=== PATIENT | male | born 1970 | race Caucasian/White ===

== ENCOUNTER 2019-09-03 08:16 | Observation (INO) | payer OTHER ==
--- NOTE | 2019-09-03 08:34 | EDM.PDOC ---
ED HPI GENERAL MEDICAL PROBLEM - General Chief Complaint: Chest Pain Stated Complaint: EMS Time Seen by Provider: 09/03/19 08:28 Source of Information: Reports: Patient, EMS - History of Present Illness INITIAL COMMENTS - FREE TEXT/NARRATIVE: pt. is a 49 y/o male w/ PMH of multiple VT s/p cardiac bypass in 2017, PE x 2 , depression/anxiety and gerd presenting via EMS w08/06 centralized chest pain. Mentions having sweats w/ mild SOB intially (during his drive w/ EMS) but has gone down when EMS provided nitro + ASA 325. At bedside pt. is c/o pain now w ; describes it as a pressure-like sensation w/ mild upper-abdominal pain. Mentions taking his "morning medications" prior to leaving to work this AM; including his depression medications (cymbalta/buspirone), omperazole and his plavix (is not sure about his other medications). Mentions smoking history 2-3 PPD x 20 years , quit briefly but restarted smoking; mentions not smoking as much as before. Denies ETOH or ilicit substance use. Onset: Today left chest, mid sternal Pain Score (Numeric/FACES): 3 - Related Data Allergies Allergy/AdvReac Type Severity Reaction Status Date / Time codeine Allergy Hives Verified 09/03/19 08:31 Iodinated Contrast Media Allergy Hives Verified 09/03/19 10:19 morphine Allergy Other Verified 09/03/19 08:31 Home Meds: Home Meds Cholecalciferol (Vitamin D3) [Vitamin D3] 1 tab PO DAILY 09/03/19 [History] Clopidogrel [Plavix] 75 mg PO DAILY 09/03/19 [History] DULoxetine [Cymbalta] 120 mg PO DAILY 09/03/19 [History] Folic Acid 09/03/19 [History] Gabapentin [Neurontin] 1.5 tab PO BID 09/03/19 [History] Losartan [Cozaar] 25 mg PO DAILY 09/03/19 [History] Omeprazole 20 mg PO DAILY 09/03/19 [History] amLODIPine [Norvasc] 5 mg PO DAILY 09/03/19 [History] atorvaSTATin [Lipitor] 80 mg PO DAILY 09/03/19 [History] busPIRone [Buspar] 20 mg PO BID 09/03/19 [History] traZODone HCl [Trazodone HCl] 100 mg PO BEDTIME 09/03/19 [History] ED ROS GENERAL - Review of Systems Review Of Systems: See Below Constitutional: Denies: Fever, Chills HEENT: Reports: No Symptoms Respiratory: Reports: Shortness of Breath. Denies: Wheezing, Pleuritic Chest Pain, Cough, Sputum Cardiovascular: Reports: Chest Pain. Denies: Blood Pressure Problem, Dyspnea on Exertion, Edema, Palpitations Endocrine: Denies: Fatigue GI/Abdominal: Reports: Abdominal Pain. Denies: Constipation, Diarrhea Musculoskeletal: Reports: No Symptoms. Denies: Neck Pain, Arm Pain Neurological: Denies: Confusion, Dizziness, Headache Psychiatric: Reports: Anxiety. Denies: Depression ED EXAM, GENERAL - Physical Exam Exam: See Below Exam Limited By: No Limitations General Appearance: Alert, No Apparent Distress Ears: Normal External Exam Respiratory/Chest: No Respiratory Distress, Lungs Clear, Normal Breath Sounds, No Accessory Muscle Use, Chest Non-Tender Cardiovascular: Regular Rate, Rhythm, No Edema, Other (linear vertical scar / midlines consistent w/ previous cardiac bypass ) GI/Abdominal: Normal Bowel Sounds, Soft, Non-Tender Extremities: Normal Inspection Neurological: Alert, Oriented, CN II-XII Intact Skin Exam: Warm, Dry Course - Vital Signs Last Recorded V/S: Last Vital Signs Temp 97.7 F 09/03/19 08:27 Pulse 68 09/03/19 11:41 Resp 20 09/03/19 08:27 BP 108/61 09/03/19 11:41 Pulse Ox 95 09/03/19 11:41 - Orders/Labs/Meds Orders: Active Orders 24 hr Category Date Time Status EKG Documentation Completion [RC] STAT Care 09/03/19 08:20 Active Oxygen Therapy Adult [Oxygen Therapy, ED] [RC] Care 09/03/19 08:41 Active ASDIRECTED Labs: Laboratory Tests 09/03/19 09/03/19 09/03/19 Range/Units 08:25 08:25 08:25 WBC 7.73 (4.0-11.0) K/uL RBC 5.36 (4.50-5.90) M/uL Hgb 15.8 (13.0-17.0) g/dL Hct 46.2 (38.0-50.0) % MCV 86.2 (80.0-98.0) fL MCH 29.5 (27.0-32.0) pg MCHC 34.2 (31.0-37.0) g/dL RDW Std Deviation 43.2 (28.0-62.0) fl RDW Coeff of Farzana 14 (11.0-15.0) % Plt Count 330 (150-400) K/uL MPV 9.40 (7.40-12.00) fL Neut % (Auto) 70.2 (48.0-80.0) % Lymph % (Auto) 20.1 (16.0-40.0) % [place] % (Auto) 7.5 (0.0-15.0) % Eos % (Auto) 1.3 (0.0-7.0) % Baso % (Auto) 0.9 (0.0-1.5) % Neut # (Auto) 5.4 (1.4-5.7) K/uL Lymph # (Auto) 1.6 (0.6-2.4) K/uL [place] # (Auto) 0.6 (0.0-0.8) K/uL Eos # (Auto) 0.1 (0.0-0.7) K/uL Baso # (Auto) 0.1 (0.0-0.1) K/uL Nucleated RBC % 0.0 /100WBC Nucleated RBCs # 0 K/uL D-Dimer, Quantitative 0.85 H (0.0-0.50) mg/L FEU Sodium 141 (136-148) mmol/L Potassium 3.5 (3.5-5.1) mmol/L Chloride 102 (98-107) mmol/L Carbon Dioxide 28.5 (21.0-32.0) mmol/L BUN 12 (7.0-18.0) mg/dL Creatinine 1.1 (0.8-1.3) mg/dL Est Cr Clr Drug Dosing 75.95 mL/min Estimated GFR (MDRD) > 60.0 ml/min Glucose 101 (74-106) mg/dL Calcium 8.8 (8.5-10.1) mg/dL Magnesium 1.8 (1.8-2.4) mg/dL Total Bilirubin 0.4 (0.2-1.0) mg/dL AST 30 (15-37) IU/L ALT 42 (14-63) IU/L Alkaline Phosphatase 92 (46-116) U/L Troponin I < 0.050 (0.000-0.056) ng/mL Total Protein 7.9 (6.4-8.2) g/dL Albumin 3.9 (3.4-5.0) g/dL Globulin 4.0 (2.6-4.0) g/dL Albumin/Globulin Ratio 1.0 (0.9-1.6) Meds: Medications Discontinued Medications Generic Name Dose Route Start Last Admin Trade Name Freq PRN Reason Stop Dose Admin Diphenhydramine HCl 25 mg 09/03/19 10:17 09/03/19 10:24 Benadryl IVPUSH 09/03/19 10:18 25 mg ONETIME ONE Administration Iopamidol 50 ml 09/03/19 11:25 09/03/19 11:26 Isovue Multipack-370 (76%) IVPUSH 09/03/19 11:26 50 ml ONETIME STA Administration Methylprednisolone Sodium Succinate 125 mg 09/03/19 10:17 09/03/19 10:24 Solu-Medrol IVPUSH 09/03/19 10:18 125 mg ONETIME ONE Administration - Re-Assessments/Exams Free Text/Narrative Re-Assessment/Exam: 09/03/19 08:35 Nitro+ASA given prior to arrival. pt. comfortable , no morphine given secondary to allergy. 09/03/19 11:51 CT Ang chest showed no acute PE Elevated D-dimer pt. otherwise stable EKG Sinus Admitted for observation by Dr Salamanca hospitalist. We appreciate his help Departure - Departure Time of Disposition: 11:50 (Accepted by Dr Salamanca; ) Disposition: Refer to Observation Clinical Impression: Chest pain, Elevated d-dimer Forms: ED Department Discharge - My Orders Last 24 Hours: My Active Orders 09/03/19 08:20 EKG Documentation Completion [RC] STAT 09/03/19 08:41 Oxygen Therapy Adult [Oxygen Therapy, ED] [RC] ASDIRECTED - Assessment/Plan Last 24 Hours: My Active Orders 09/03/19 08:20 EKG Documentation Completion [RC] STAT 09/03/19 08:41 Oxygen Therapy Adult [Oxygen Therapy, ED] [RC] ASDIRECTED
[2019-09-03 09:03] LABS: BLOOD UREA NITROGEN,BUN 12 mg/dL (7.0-18.0); CARBON DIOXIDE,CO2 28.5 mmol/L (21.0-32.0); CHLORIDE,CL 102 mmol/L (98-107); GLUCOSE RANDOM 101 mg/dL (74-106); POTASSIUM,K 3.5 mmol/L (3.5-5.1); SODIUM,NA 141 mmol/L (136-148)
--- NOTE | 2019-09-03 09:11 | CR ---
INDICATION: Chest pain and shortness of breath TECHNIQUE: Chest 1 view. COMPARISON: None FINDINGS: Cardiovascular and mediastinum: Heart size and vasculature are normal in caliber and appearance. Mediastinum is within normal limits. Sternotomy wires noted. Lungs and pleural space: Lungs are clear. No sign of infiltrate or mass. No sign of pleural effusion. No pneumothorax. Bones and soft tissues: No significant findings. IMPRESSION: Unremarkable chest. Dictated by Canelo Shipman MD @ Sep 03 2019 9:11AM Signed by Dr. Canelo Shipman @ Sep 03 2019 9:11AM
[2019-09-03] MEDS ORDERED: methylPREDNISolone Sodium Succinate 125 MG/2 ML SDV IVPUSH ONE (10:17)
[2019-09-03] MEDS ORDERED: diphenhydrAMINE 50 MG/ML SDV IVPUSH ONE (10:17)
[2019-09-03] MEDS ORDERED: Iopamidol 755 MG/ML 500 ML Multipack Bottle IVPUSH STA (11:25)
--- NOTE | 2019-09-03 11:45 | CT ---
INDICATION: Mid sternal chest pain with shortness breath starting at 0530 hours. COMPARISON: None. TECHNIQUE: CT angiography of the chest, PE protocol. 50 cc of Isovue-370 was administered. FINDINGS: No filling defect to indicate acute PE. No pericardial effusion. Severe coronary artery calcifications. Median sternotomy hardware status post CABG. Heart size is top-normal. No lymphadenopathy identified in the chest. The imaged upper abdomen is unremarkable. No suspicious osseous lesion. Mild basilar interlobular septal thickening and mild ground-glass opacities which could be due to pulmonary edema. No focal lung consolidation, pleural effusion or pneumothorax. No suspicious nodule or mass. IMPRESSION: 1. No evidence of acute PE. 2. Mild interlobular septal thickening and ground-glass opacities likely due to pulmonary edema. Please note that all CT scans at this facility use dose modulation, iterative reconstruction, and/or weight-based dosing when appropriate to reduce radiation dose to as low as reasonably achievable. Dictated by Canelo Masters MD @ Sep 03 2019 11:40AM Signed by Dr. Canelo Masters @ Sep 03 2019 11:44AM
[2019-09-03] MEDS ORDERED: Ondansetron 4 MG/2 ML SDV IVPUSH PRN (12:23)
[2019-09-03] MEDS ORDERED: Sodium Chloride 0.9% 2.5 ML Syringe FLUSH PRN (12:23)
[2019-09-03] MEDS ORDERED: Pantoprazole 40 MG in Sodium Chloride 0.9% 10 ML IV ONE (12:23)
[2019-09-03] MEDS ORDERED: Acetaminophen 325 MG Tab PO PRN (12:23)
[2019-09-03] MEDS ORDERED: Furosemide 40 MG/4 ML VIAL IVPUSH ONE (12:32)
--- NOTE | 2019-09-03 12:40 | PCM.HP.2 ---
H&P History of Present Illness - General Date of Service: 09/03/19 Admit Problem/Dx: Admission Diagnosis/Problem Admission Diagnosis/Problem Chest pain Source of Information: Patient History Limitations: Reports: No Limitations - History of Present Illness Initial Comments - Free Text/Narative: This 49 year old male with PMH of CABG x 2 in 2016, RCA dissection 2016, carotid artery stenosis with stent, GERD, Depression and anxiety, PE x 2 in 2007 , Stroke 2016 and TIA in 2017 presented today with complaints of shortness of breath and chest tightness. He reports this started suddenly this morning. It didnt radiate anywhere, it was located mid chest. He reported mild nausea with this pain and dyspnea. No diaphoresis. He reports he was feeling well up until this morning, no recent URI symptoms. He denies abdominal pain, urinary concerns or neurological concerns. He reports he continues to smoke at least a ppd and chews approximately tin a day. He denies alcohol use and no recreational drug use. He reports he has been complaint with home medications, took all his morning medications. He states he has follow up with his Arts Manager, Dr Jorge, next month at home in [place]. In the ED, labwork WNL. D dimer slightly elevated at 0.85. Troponin negative. EKG SR with no ST elevation or signs of acute ischemia. CXR negative. CT angio obtained which ruled out PE, but revealed ground glass opacities consistent with possible pulmonary edema. Given ASA and Nitro in ambulance. left chest, mid sternal Pain Score (Numeric/FACES): 3 - Related Data Allergies/Adverse Reactions: Allergies Allergy/AdvReac Type Severity Reaction Status Date / Time codeine Allergy Hives Verified 09/03/19 15:45 Iodinated Contrast Media Allergy Hives Verified 09/03/19 15:45 morphine Allergy Other Verified 09/03/19 15:45 Home Medications: Home Meds Cholecalciferol (Vitamin D3) [Vitamin D3] 1 tab PO DAILY 09/03/19 [History] Clopidogrel [Plavix] 75 mg PO DAILY 09/03/19 [History] DULoxetine [Cymbalta] 120 mg PO DAILY 09/03/19 [History] Folic Acid 09/03/19 [History] Gabapentin [Neurontin] 1.5 tab PO BID 09/03/19 [History] Losartan [Cozaar] 25 mg PO DAILY 09/03/19 [History] Omeprazole 20 mg PO DAILY 09/03/19 [History] amLODIPine [Norvasc] 5 mg PO DAILY 09/03/19 [History] atorvaSTATin [Lipitor] 80 mg PO DAILY 09/03/19 [History] busPIRone [Buspar] 20 mg PO BID 09/03/19 [History] traZODone HCl [Trazodone HCl] 100 mg PO BEDTIME 09/03/19 [History] Past Medical History Cardiovascular History: Reports: Blood Clots/VTE/DVT, CAD, Heart Failure (EF 50- 55%), High Cholesterol, Hypertension, PA, Stents (coronary and R carotid) Respiratory History: Reports: Sleep Apnea (possible) Gastrointestinal History: Reports: GERD Genitourinary History: Denies: Chronic Renal Insuffiency Neurological History: Reports: CVA, TIA Psychiatric History: Reports: Anxiety, Depression, Panic Attack - Past Surgical History Cardiovascular Surgical History: Reports: Coronary Artery Bypass Musculoskeletal Surgical History: Reports: Shoulder Surgery Social & Family History - Family History Family Medical History: Noncontributory - Tobacco Use Smoking Status *Q: Current Every Day Smoker Years of Tobacco use: 20 Packs/Tins Daily: 1 - Caffeine Use Caffeine Use: Reports: Soda - Alcohol Use Alcohol Use History: No - Recreational Drug Use Recreational Drug Use: No - Living Situation & Occupation Occupation: Employed H&P Review of Systems - Review of Systems: Review Of Systems: See Below General: Reports: No Symptoms. Denies: Fever, Chills, Malaise HEENT: Reports: No Symptoms. Denies: Headaches, Sinus Congestion Pulmonary: Reports: Shortness of Breath. Denies: Cough, Sputum Cardiovascular: Reports: Chest Pain, Dyspnea on Exertion. Denies: Palpitations , Orthopnea, Edema, Lightheadedness Gastrointestinal: Reports: No Symptoms. Denies: Abdominal Pain, Black Stool, Bloody Stool, Nausea, Vomiting Genitourinary: Reports: No Symptoms. Denies: Dysuria, Frequency, Burning Musculoskeletal: Reports: No Symptoms Skin: Reports: No Symptoms Psychiatric: Reports: No Symptoms Neurological: Reports: No Symptoms Hematologic/Lymphatic: Reports: No Symptoms Immunologic: Reports: No Symptoms Exam - Exam Exam: See Below - Vital Signs Vital Signs: Last Vital Signs Temp 97.7 F 09/03/19 08:27 Pulse 68 09/03/19 11:41 Resp 20 09/03/19 08:27 BP 108/61 09/03/19 11:41 Pulse Ox 95 09/03/19 11:41 Weight: 92 kg - Exam General: Alert, Oriented, Cooperative HEENT: Pupils Equal Neck: Supple, Trachea Midline. No: JVD Lungs: Clear to Auscultation, Normal Respiratory Effort Cardiovascular: Regular Rate, Regular Rhythm, Normal S1, Normal S2. No: Irregular Rhythm, Systolic Murmur GI/Abdominal Exam: Normal Bowel Sounds, Soft, Non-Tender Back Exam: Normal Inspection, Full Range of Motion Extremities: Normal Inspection, Normal Range of Motion, No Pedal Edema Skin: Warm, Dry Neuro Extensive - Mental Status: Alert, Oriented x3, Normal Mood/Affect Psychiatric: Alert - Patient Data Lab Results Last 24 hrs: Laboratory Results - last 24 hr 09/03/19 09/03/19 09/03/19 Range/Units 08:25 08:25 08:25 WBC 7.73 (4.0-11.0) K/uL RBC 5.36 (4.50-5.90) M/uL Hgb 15.8 (13.0-17.0) g/dL Hct 46.2 (38.0-50.0) % MCV 86.2 (80.0-98.0) fL MCH 29.5 (27.0-32.0) pg MCHC 34.2 (31.0-37.0) g/dL RDW Std Deviation 43.2 (28.0-62.0) fl RDW Coeff of Farzana 14 (11.0-15.0) % Plt Count 330 (150-400) K/uL MPV 9.40 (7.40-12.00) fL Neut % (Auto) 70.2 (48.0-80.0) % Lymph % (Auto) 20.1 (16.0-40.0) % [place] % (Auto) 7.5 (0.0-15.0) % Eos % (Auto) 1.3 (0.0-7.0) % Baso % (Auto) 0.9 (0.0-1.5) % Neut # (Auto) 5.4 (1.4-5.7) K/uL Lymph # (Auto) 1.6 (0.6-2.4) K/uL [place] # (Auto) 0.6 (0.0-0.8) K/uL Eos # (Auto) 0.1 (0.0-0.7) K/uL Baso # (Auto) 0.1 (0.0-0.1) K/uL Nucleated RBC % 0.0 /100WBC Nucleated RBCs # 0 K/uL D-Dimer, Quantitative 0.85 H (0.0-0.50) mg/L FEU Sodium 141 (136-148) mmol/L Potassium 3.5 (3.5-5.1) mmol/L Chloride 102 (98-107) mmol/L Carbon Dioxide 28.5 (21.0-32.0) mmol/L BUN 12 (7.0-18.0) mg/dL Creatinine 1.1 (0.8-1.3) mg/dL Est Cr Clr Drug Dosing 75.95 mL/min Estimated GFR (MDRD) > 60.0 ml/min Glucose 101 (74-106) mg/dL Calcium 8.8 (8.5-10.1) mg/dL Magnesium 1.8 (1.8-2.4) mg/dL Total Bilirubin 0.4 (0.2-1.0) mg/dL AST 30 (15-37) IU/L ALT 42 (14-63) IU/L Alkaline Phosphatase 92 (46-116) U/L Troponin I < 0.050 (0.000-0.056) ng/mL Total Protein 7.9 (6.4-8.2) g/dL Albumin 3.9 (3.4-5.0) g/dL Globulin 4.0 (2.6-4.0) g/dL Albumin/Globulin Ratio 1.0 (0.9-1.6) Result Diagrams: 09/03/19 08:25 09/03/19 08:25 *Q Meaningful Use (ADM) - VTE Risk Assess *Q Each Risk Factor Represents 1 Point: Age 41 - 59 years Total Score 1 Point Risk Factors: 1 Each Risk Factor Represents 2 Points: Malignancy (present or previous) Total Score 2 Point Risk Factors: 2 Each Risk Factor Represents 3 Points: History of DVT/PE Total Score 3 Point Risk Factors: 3 Each Risk Factor Represents 5 Points: None Total Score 5 Point Risk Factors: 0 Venous Thromboembolism Risk Factor Score *Q: 6 - Problem List (1) Chest pain SNOMED Code(s): 03042230 ICD Code: R07.9 - CHEST PAIN, UNSPECIFIED Status: Acute Current Visit: Yes (2) Dyspnea SNOMED Code(s): 659891164 ICD Code: R06.00 - DYSPNEA, UNSPECIFIED Status: Acute Current Visit: Yes (3) CAD (coronary artery disease) SNOMED Code(s): 39124281 ICD Code: I25.10 - ATHSCL HEART DISEASE OF [place] CORONARY ARTERY W/O ANG PCTRS Status: Chronic Current Visit: Yes (4) History of right common carotid artery stent placement SNOMED Code(s): 963086454 ICD Code: Z98.890 - OTHER SPECIFIED POSTPROCEDURAL STATES; Z95.828 - PRESENCE OF OTHER VASCULAR IMPLANTS AND GRAFTS Status: Chronic Current Visit : Yes (5) S/P CABG x 2 SNOMED Code(s): 367020534, 265687298, 754985837 ICD Code: Z95.1 - PRESENCE OF AORTOCORONARY BYPASS GRAFT Status: Chronic Current Visit: Yes (6) CVA (cerebral vascular accident) SNOMED Code(s): 266524053 ICD Code: I63.9 - CEREBRAL INFARCTION, UNSPECIFIED Status: Chronic Current Visit: Yes (7) Anxiety and depression SNOMED Code(s): 355622464 ICD Code: F41.9 - ANXIETY DISORDER, UNSPECIFIED; F32.9 - MAJOR DEPRESSIVE DISORDER, SINGLE EPISODE, UNSPECIFIED Status: Chronic Current Visit: Yes (8) GERD (gastroesophageal reflux disease) SNOMED Code(s): 887299417 ICD Code: K21.9 - GASTRO-ESOPHAGEAL REFLUX DISEASE WITHOUT ESOPHAGITIS Status: Chronic Current Visit: Yes (9) Hx pulmonary embolism SNOMED Code(s): 386119318 ICD Code: Z86.711 - PERSONAL HISTORY OF PULMONARY EMBOLISM Status: Chronic Current Visit: Yes (10) Smoker SNOMED Code(s): 70115777 ICD Code: F17.200 - NICOTINE DEPENDENCE, UNSPECIFIED, UNCOMPLICATED Status : Chronic Current Visit: Yes Problem List Initiated/Reviewed/Updated: Yes Orders Last 24hrs: Active Orders 24 hr Category Date Time Status Admission Status [Patient Status] [ADT] Stat ADT 09/03/19 11:56 Active Height and Weight [RC] DAILY Care 09/03/19 12:23 Ordered Intake and Output [RC] QSHIFT Care 09/03/19 12:25 Ordered Oxygen Therapy [RC] PRN Care 09/03/19 12:23 Ordered Telemetry Monitoring [Cardiac Monitoring] [RC] . Care 09/03/19 12:32 Ordered DIRECTED Up With Assistance [RC] ASDIRECTED Care 09/03/19 12:23 Ordered VTE/DVT Education [RC] PER UNIT ROUTINE Care 09/03/19 12:23 Ordered Vital Signs [RC] Q4H Care 09/03/19 12:23 Ordered 2 Gram Sodium Diet [DIET] Diet 09/03/19 Lunch Active Echo Comp wo Cont [US] Urgent Exams 09/03/19 12:22 Ordered BASIC METABOLIC PANEL,BMP [CHEM] AM Lab 09/04/19 05:11 Ordered CBC WITH AUTO DIFF [HEME] AM Lab 09/04/19 05:11 Ordered TROPONIN I [CHEM] Q6H Lab 09/03/19 14:00 Ordered TROPONIN I [CHEM] Q6H Lab 09/03/19 20:00 Ordered Acetaminophen [Tylenol] Med 09/03/19 12:23 Ordered 650 mg PO Q4H PRN Ondansetron [Zofran] Med 09/03/19 12:23 Ordered 4 mg IVPUSH Q4H PRN Sodium Chloride 0.9% [Saline Flush] Med 09/03/19 12:23 Ordered 2.5 ml FLUSH ASDIRECTED PRN Saline Lock Insert [OM.PC] Routine Oth 09/03/19 12:23 Ordered Resuscitation Status Routine Resus Stat 09/03/19 12:23 Ordered Medication Orders Acetaminophen (Tylenol) 650 mg PO Q4H PRN PRN Reason: Pain (mild 1-3) Ondansetron HCl (Zofran) 4 mg IVPUSH Q4H PRN PRN Reason: Nausea Sodium Chloride (Saline Flush) 2.5 ml FLUSH ASDIRECTED PRN PRN Reason: Keep Vein Open Assessment/Plan Comment:: This 49 year old with significant CAD admitted with chest pain and shortness of breath. 1. Chest pain: Rule out ACS with troponins. Monitor on telemetry. Obtain lipid and A1c in am. 2. Dyspnea: possible pulmonary edema noted on CT, gave dose of Lasix will monitor shortness of breath. Obtain ECHO. Previous ECHO from 2018 obtained from [place], EF 50-55%. 3. HTN/CAD : Continue Home medications, including Losartan, Norvasc, Plavix and ASA 4. GERD: Given protonix. Continue Omeprazole. 5. Anxiety/Depression: Continue home medications VTE prophylaxis: Lovenox. Dispo: 1 day - Mortality Measure Prognosis:: Good
[2019-09-03] MEDS ORDERED: Enoxaparin 40 MG/0.4 ML Syringe SUBCUT SCH (16:00)
[2019-09-03] MEDS: Gabapentin 800 MG Tab PO SCH (20:30)
[2019-09-03] MEDS: busPIRone 5 MG Tab PO SCH (20:31)
[2019-09-03] MEDS ORDERED: traZODone 50 MG Tab PO SCH (21:00)
[2019-09-04 06:27] LABS: BLOOD UREA NITROGEN,BUN 25 mg/dL (7.0-18.0); CARBON DIOXIDE,CO2 27.7 mmol/L (21.0-32.0); CHLORIDE,CL 104 mmol/L (98-107); GLUCOSE RANDOM 112 mg/dL (74-106); POTASSIUM,K 3.5 mmol/L (3.5-5.1); SODIUM,NA 142 mmol/L (136-148)
[2019-09-04 06:35] LABS: HEMOGLOBIN A1C 5.4 % (4.5-6.2)
[2019-09-04] MEDS ORDERED: Omeprazole 20 MG Cap.CR PO SCH (07:30)
[2019-09-04] MEDS: Gabapentin 800 MG Tab PO SCH (08:42)
[2019-09-04] MEDS: busPIRone 5 MG Tab PO SCH (08:42)
[2019-09-04] MEDS ORDERED: Losartan 50 MG Tab PO SCH (09:00)
[2019-09-04] MEDS ORDERED: amLODIPine 5 MG Tab PO SCH (09:00)
[2019-09-04] MEDS ORDERED: DULoxetine 60 MG Cap PO SCH (09:00)
[2019-09-04] MEDS ORDERED: Clopidogrel 75 MG Tab PO SCH (09:00)
[2019-09-04] MEDS ORDERED: atorvaSTATin 40 MG Tab PO SCH (09:00)
--- NOTE | 2019-09-04 10:00 | PCM.DCSUM1 ---
Discharge Summary - Hospital Course Brief History: This 49 year old male with PMH of CABG x 2 in 2017, RCA dissection 2016, carotid artery stenosis with stent, GERD, Depression and anxiety, PE x 2 in 2007, Stroke 2016 and TIA in 2017 presented today with complaints of shortness of breath and chest tightness. He reports this started suddenly this morning. It didnt radiate anywhere, it was located mid chest. He reported mild nausea with this pain and dyspnea. No diaphoresis. He reports he was feeling well up until this morning, no recent URI symptoms. He denies abdominal pain, urinary concerns or neurological concerns. He reports he continues to smoke at least a ppd and chews approximately tin a day. He denies alcohol use and no recreational drug use. He reports he has been complaint with home medications, took all his morning medications. He states he has follow up with his [facility], Dr Jorge, next month at home in [place]. In the ED, labwork WNL. D dimer slightly elevated at 0.85. Troponin negative. EKG SR with no ST elevation or signs of acute ischemia. CXR negative. CT angio obtained which ruled out PE, but revealed ground glass opacities consistent with possible pulmonary edema. Given ASA and Nitro in ambulance. Diagnosis: Stroke: No - Discharge Data Discharge Date: 09/04/19 Discharge Disposition: Home, Self-Care 01 Condition: Stable - Referral to Home Health Primary Care Physician: PCP Unobtainable - Discharge Diagnosis/Problem(s) (1) Chest pain SNOMED Code(s): 79551250 ICD Code: R07.9 - CHEST PAIN, UNSPECIFIED Status: Acute Current Visit: Yes (2) Dyspnea SNOMED Code(s): 673632222 ICD Code: R06.00 - DYSPNEA, UNSPECIFIED Status: Acute Current Visit: Yes (3) CAD (coronary artery disease) SNOMED Code(s): 48939930 ICD Code: I25.10 - ATHSCL HEART DISEASE OF [place] CORONARY ARTERY W/O ANG PCTRS Status: Chronic Current Visit: Yes (4) History of right common carotid artery stent placement SNOMED Code(s): 636030765 ICD Code: Z98.890 - OTHER SPECIFIED POSTPROCEDURAL STATES; Z95.828 - PRESENCE OF OTHER VASCULAR IMPLANTS AND GRAFTS Status: Chronic Current Visit : Yes (5) S/P CABG x 2 SNOMED Code(s): 629790154, 384357617, 899882287 ICD Code: Z95.1 - PRESENCE OF AORTOCORONARY BYPASS GRAFT Status: Chronic Current Visit: Yes (6) CVA (cerebral vascular accident) SNOMED Code(s): 447180523 ICD Code: I63.9 - CEREBRAL INFARCTION, UNSPECIFIED Status: Chronic Current Visit: Yes (7) Anxiety and depression SNOMED Code(s): 444837688 ICD Code: F41.9 - ANXIETY DISORDER, UNSPECIFIED; F32.9 - MAJOR DEPRESSIVE DISORDER, SINGLE EPISODE, UNSPECIFIED Status: Chronic Current Visit: Yes (8) GERD (gastroesophageal reflux disease) SNOMED Code(s): 961257885 ICD Code: K21.9 - GASTRO-ESOPHAGEAL REFLUX DISEASE WITHOUT ESOPHAGITIS Status: Chronic Current Visit: Yes (9) Hx pulmonary embolism SNOMED Code(s): 715357064 ICD Code: Z86.711 - PERSONAL HISTORY OF PULMONARY EMBOLISM Status: Chronic Current Visit: Yes (10) Smoker SNOMED Code(s): 46709637 ICD Code: F17.200 - NICOTINE DEPENDENCE, UNSPECIFIED, UNCOMPLICATED Status : Chronic Current Visit: Yes - Patient Instructions Diet: Heart Healthy Diet Activity: As Tolerated Showering/Bathing: May Shower Notify Provider of: Fever, Increased Pain, Swelling and Redness, Drainage, Nausea and/or Vomiting Other/Special Instructions: I have contacted Dr Jorge, I will have them contact you to arrange outpatient stress test at their soonest convenience. - Discharge Plan *PRESCRIPTION DRUG MONITORING PROGRAM REVIEWED*: Not Applicable *COPY OF PRESCRIPTION DRUG MONITORING REPORT IN PATIENT TAMMY: Not Applicable Home Medications: Home Meds Cholecalciferol (Vitamin D3) [Vitamin D3] 1 tab PO DAILY 09/03/19 [History] Clopidogrel [Plavix] 75 mg PO DAILY 09/03/19 [History] DULoxetine [Cymbalta] 30 mg PO DAILY 09/03/19 [History] Folic Acid 09/03/19 [History] Gabapentin [Neurontin] 1 tab PO QID 09/03/19 [History] Hydrocodone/Acetaminophen [[place] 10-325 Tablet] 1 each PO Q6H PRN 09/03/19 [ History] Lansoprazole 15 mg PO DAILY 09/03/19 [History] Losartan [Cozaar] 25 mg PO DAILY 09/03/19 [History] Omeprazole 20 mg PO DAILY 09/03/19 [History] amLODIPine [Norvasc] 5 mg PO DAILY 09/03/19 [History] atorvaSTATin [Lipitor] 80 mg PO BEDTIME 09/03/19 [History] busPIRone [Buspar] 20 mg PO BID 09/03/19 [History] traMADol HCl [Tramadol HCl] 50 mg PO Q6H PRN 09/03/19 [History] traZODone HCl [Trazodone HCl] 200 mg PO BEDTIME 09/03/19 [History] Oxygen Therapy Mode: Room Air Referrals: PCP,Isai [Primary Care Provider] - (Has follow up with [facility], Dr james Jorge in [facility] on October 05. Will need outpatient stress test as well.) - Discharge Summary/Plan Comment DC Time >30 min.: No Discharge Summary/Plan Comment: Admitting Diagnoses: Chest pain Dyspnea Discharge Diagnoses; Chest pain-resolved Dysponea- resolved Other PMH: CAD HTN Hx CABG x 2 Hx CVA Carotid stenosis with stenting Hx RCA dissection Depression Anxiety Hx PE Vipin was admitted secondary to chest pain. He was monitored overnight, troponins remained negative. No ischemic EKG changes noted. He has remained chest pain free. He was given Lasix x 1 due to possibly pulmonary edema noted on CT angio. CT angio obtained due to slightly elevated D dimer and history of PE, but this was negative for PE. ECHO obtained but is pending on admission. He is feeling better today, will restart all home medications and discharge home. He has follow up with [facility] in [place] October 05. I have reached out to them to set up outpatient stress test. Currently message was left with MA to contact me regarding this. He is to return to ED or clinic if concerns should arise. - General Info Date of Service: 09/04/19 Admission Dx/Problem (Free Text: Admission Diagnosis/Problem Admission Diagnosis/Problem Chest pain Functional Status: Reports: Pain Controlled, Tolerating Diet, Ambulating. Denies: New Symptoms - Review of Systems General: Reports: No Symptoms. Denies: Fever, Weakness HEENT: Reports: No Symptoms Pulmonary: Reports: No Symptoms. Denies: Shortness of Breath, Cough, Wheezing Cardiovascular: Reports: No Symptoms. Denies: Chest Pain Gastrointestinal: Reports: No Symptoms. Denies: Abdominal Pain Musculoskeletal: Reports: No Symptoms Skin: Reports: No Symptoms Neurological: Reports: No Symptoms - Patient Data Vitals - Most Recent: Last Vital Signs Temp 97.7 F 09/04/19 07:24 Pulse 82 09/04/19 07:24 Resp 16 09/04/19 07:24 BP 143/59 H 09/04/19 08:44 Pulse Ox 94 L 09/04/19 07:24 Weight - Most Recent: 92.079 kg I&O - Last 24 hours: Intake & Output 09/03/19 09/04/19 09/04/19 22:59 06:59 14:59 Intake Total 340 450 Output Total 700 400 Balance -360 50 Lab Results - Last 24 hrs: Laboratory Results - last 24 hr 09/03/19 09/03/19 09/04/19 Range/Units 14:08 20:36 05:47 WBC 16.27 H (4.0-11.0) K/uL RBC 5.49 (4.50-5.90) M/uL Hgb 16.2 (13.0-17.0) g/dL Hct 46.9 (38.0-50.0) % MCV 85.4 (80.0-98.0) fL MCH 29.5 (27.0-32.0) pg MCHC 34.5 (31.0-37.0) g/dL RDW Std Deviation 43.0 (28.0-62.0) fl RDW Coeff of Farzana 14 (11.0-15.0) % Plt Count 356 (150-400) K/uL MPV 9.70 (7.40-12.00) fL Neut % (Auto) 84.9 H (48.0-80.0) % Lymph % (Auto) 10.4 L (16.0-40.0) % [place] % (Auto) 4.5 (0.0-15.0) % Eos % (Auto) 0.1 (0.0-7.0) % Baso % (Auto) 0.1 (0.0-1.5) % Neut # (Auto) 13.8 H (1.4-5.7) K/uL Lymph # (Auto) 1.7 (0.6-2.4) K/uL [place] # (Auto) 0.7 (0.0-0.8) K/uL Eos # (Auto) 0.0 (0.0-0.7) K/uL Baso # (Auto) 0.0 (0.0-0.1) K/uL Nucleated RBC % 0.0 /100WBC Nucleated RBCs # 0 K/uL Sodium (136-148) mmol/L Potassium (3.5-5.1) mmol/L Chloride (98-107) mmol/L Carbon Dioxide (21.0-32.0) mmol/L BUN (7.0-18.0) mg/dL Creatinine (0.8-1.3) mg/dL Est Cr Clr Drug Dosing mL/min Estimated GFR (MDRD) ml/min Glucose (74-106) mg/dL Hemoglobin A1c (4.5-6.2) % Calcium (8.5-10.1) mg/dL Troponin I < 0.050 < 0.050 (0.000-0.056) ng/mL Triglycerides (0-200) mg/dL Cholesterol (50-200) mg/dL LDL Cholesterol, Calc (60-180) mg/dL VLDL Cholesterol (5-55) mg/dL HDL Cholesterol (40-60) mg/dL Cholesterol/HDL Ratio (3.3-6.0) 09/04/19 09/04/19 Range/Units 05:47 05:47 WBC (4.0-11.0) K/uL RBC (4.50-5.90) M/uL Hgb (13.0-17.0) g/dL Hct (38.0-50.0) % MCV (80.0-98.0) fL MCH (27.0-32.0) pg MCHC (31.0-37.0) g/dL RDW Std Deviation (28.0-62.0) fl RDW Coeff of Farzana (11.0-15.0) % Plt Count (150-400) K/uL MPV (7.40-12.00) fL Neut % (Auto) (48.0-80.0) % Lymph % (Auto) (16.0-40.0) % Le[place] % (Auto) (0.0-15.0) % Eos % (Auto) (0.0-7.0) % Baso % (Auto) (0.0-1.5) % Neut # (Auto) (1.4-5.7) K/uL Lymph # (Auto) (0.6-2.4) K/uL [place] # (Auto) (0.0-0.8) K/uL Eos # (Auto) (0.0-0.7) K/uL Baso # (Auto) (0.0-0.1) K/uL Nucleated RBC % /100WBC Nucleated RBCs # K/uL Sodium 142 (136-148) mmol/L Potassium 3.5 (3.5-5.1) mmol/L Chloride 104 (98-107) mmol/L Carbon Dioxide 27.7 (21.0-32.0) mmol/L BUN 25 H (7.0-18.0) mg/dL Creatinine 1.2 (0.8-1.3) mg/dL Est Cr Clr Drug Dosing 69.62 mL/min Estimated GFR (MDRD) > 60.0 ml/min Glucose 112 H (74-106) mg/dL Hemoglobin A1c 5.4 (4.5-6.2) % Calcium 8.5 (8.5-10.1) mg/dL Troponin I (0.000-0.056) ng/mL Triglycerides 115 (0-200) mg/dL Cholesterol 128 (50-200) mg/dL LDL Cholesterol, Calc 67 (60-180) mg/dL VLDL Cholesterol 23 (5-55) mg/dL HDL Cholesterol 38 L (40-60) mg/dL Cholesterol/HDL Ratio 3.4 (3.3-6.0) Med Orders - Current: Current Medications Acetaminophen (Tylenol) 650 mg PO Q4H PRN PRN Reason: Pain (mild 1-3) Amlodipine Besylate (Norvasc) 5 mg PO DAILY [facility] Last Admin: 09/04/19 08:44 Dose: 5 mg Atorvastatin Calcium (Lipitor) 80 mg PO DAILY [facility] Last Admin: 09/04/19 08:42 Dose: 80 mg Buspirone HCl (Buspar) 20 mg PO BID [facility] Last Admin: 09/04/19 08:42 Dose: 20 mg Clopidogrel Bisulfate (Plavix) 75 mg PO DAILY [facility] Last Admin: 09/04/19 08:43 Dose: 75 mg Duloxetine HCl (Cymbalta) 120 mg PO DAILY [facility] Last Admin: 09/04/19 08:43 Dose: 120 mg Enoxaparin Sodium (Lovenox) 40 mg SUBCUT Q24H [facility] Last Admin: 09/03/19 16:22 Dose: 40 mg Gabapentin (Neurontin) 1,200 mg PO BID [facility] Last Admin: 09/04/19 08:42 Dose: 1,200 mg Losartan Potassium (Cozaar) 25 mg PO DAILY [facility] Last Admin: 09/04/19 08:44 Dose: 25 mg Omeprazole (Omeprazole) 20 mg PO ACBREAKFAST [facility] Last Admin: 09/04/19 06:30 Dose: 20 mg Ondansetron HCl (Zofran) 4 mg IVPUSH Q4H PRN PRN Reason: Nausea Sodium Chloride (Saline Flush) 2.5 ml FLUSH ASDIRECTED PRN PRN Reason: Keep Vein Open Trazodone HCl (Trazodone) 100 mg PO BEDTIME [facility] Last Admin: 09/03/19 20:30 Dose: 100 mg Discontinued Medications Diphenhydramine HCl (Benadryl) 25 mg IVPUSH ONETIME ONE Stop: 09/03/19 10:18 Last Admin: 09/03/19 10:24 Dose: 25 mg Furosemide (Lasix) 40 mg IVPUSH NOW ONE Stop: 09/03/19 12:33 Last Admin: 09/03/19 13:43 Dose: 40 mg Pantoprazole Sodium 40 mg/ (Sodium Chloride) 10 mls @ 300 mls/hr IV NOW ONE Stop: 09/03/19 12:24 Last Admin: 09/03/19 13:43 Dose: 300 mls/hr Iopamidol (Isovue Multipack-370 (76%)) 50 ml IVPUSH ONETIME STA Stop: 09/03/19 11:26 Last Admin: 09/03/19 11:26 Dose: 50 ml Methylprednisolone Sodium Succinate (Solu-Medrol) 125 mg IVPUSH ONETIME ONE Stop: 09/03/19 10:18 Last Admin: 09/03/19 10:24 Dose: 125 mg - Exam General: Reports: Alert, Oriented, Cooperative, No Acute Distress Lungs: Reports: Clear to Auscultation, Normal Respiratory Effort Cardiovascular: Reports: Regular Rate, Regular Rhythm GI/Abdominal Exam: Normal Bowel Sounds, Soft, Non-Tender Extremities: Normal Inspection, Normal Range of Motion Skin: Reports: Warm, Dry, Intact Wound/Incisions: Reports: Healing Well Neurological: Reports: No New Focal Deficit Psy/Mental Status: Reports: Alert, Normal Affect, Normal Mood
--- NOTE | 2019-09-07 16:24 | ECHO ---
EXAM DATE: 09/03/19 PATIENT'S AGE: 49 The echocardiogram report can be seen in this patient's EMR (Electronic Medical Record) in the Reports section. The report has also been scanned into PACs. NELL
== END 2019-09-04 13:00 | disposition home or self-care (01) ==
LOC: MW.ED 08:16 → MW.MS 11:56
PROVIDERS: ADMIT Internal Medicine; ATTEND Internal Medicine
DX: R07.89 Other chest pain (principal); R06.00 Dyspnea, unspecified; I25.10 Atherosclerotic heart disease of native coronary artery without angina pectoris; I63.9 Cerebral infarction, unspecified; F32.9 Major depressive disorder, single episode, unspecified; I13.0 Hypertensive heart and chronic kidney disease with heart failure and stage 1 through stage 4 chronic kidney disease, or unspecified chronic kidney disease; N18.9 Chronic kidney disease, unspecified; I50.9 Heart failure, unspecified; F41.9 Anxiety disorder, unspecified; K21.9 Gastro-esophageal reflux disease without esophagitis; F17.210 Nicotine dependence, cigarettes, uncomplicated; Z98.890 Other specified postprocedural states; Z95.1 Presence of aortocoronary bypass graft; Z86.711 Personal history of pulmonary embolism; Z79.899 Other long term (current) drug therapy; Z79.02 Long term (current) use of antithrombotics/antiplatelets; Z86.73 Personal history of transient ischemic attack (TIA), and cerebral infarction without residual deficits; Z88.5 Allergy status to narcotic agent; Z91.041 Radiographic dye allergy status
CPT/HCPCS: 36415; 71045; 71275; 80048; 80053; 80061; 83036; 83735; 84484; 85025; 85379; 93005; 93306; 96374; 96375; 99285; A9270; C9113; J1200; J1650; J1940; J2930; J7050; Q9967; 96372; G0378

== ENCOUNTER 2019-09-07 13:43 | Observation (INO) | payer OTHER ==
[2019-09-07] MEDS ORDERED: Sodium Chloride 0.9% 2.5 ML Syringe FLUSH PRN (13:50)
[2019-09-07] MEDS ORDERED: Sodium Chloride 0.9% 10 ML Syringe FLUSH PRN (13:50)
[2019-09-07] MEDS ORDERED: Aspirin 81 MG Tab.Chew PO ONE (13:50)
[2019-09-07] MEDS ORDERED: Sodium Chloride 0.9% 1,000 ML IV ONE (13:55)
[2019-09-07] MEDS ORDERED: Ondansetron 4 MG/2 ML SDV IVPUSH ONE (13:58)
--- NOTE | 2019-09-07 13:58 | EDM.PDOC ---
ED HPI GENERAL MEDICAL PROBLEM - General Chief Complaint: Chest Pain Stated Complaint: CHEST PAIN Time Seen by Provider: 09/07/19 13:50 Source of Information: Reports: Patient History Limitations: Reports: No Limitations - History of Present Illness INITIAL COMMENTS - FREE TEXT/NARRATIVE: HISTORY AND PHYSICAL: History of present illness: Patient is a 49-year-old male who presents to the emergency room with complaints of midsternal chest pain and nausea. Patient does have an extensive cardiac history. 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 He states he has seen Dr. Ward at [facility] in [place], in the past. Today around 12:30 he started to develop midsternal chest pain which she describes as a heavy pressure. This was also associated with diaphoresis and nausea. Nothing makes the pain better or worse. He states that he was just resting in his chair when the pain started. The chest pain has not changed in intensity, has not taken any medications for this. Patient denies any fever, chills, headache, change in vision, syncope or near syncope. Denies any back pain, shortness of breath or cough. Denies any abdominal pain, vomiting, diarrhea, constipation or dysuria. Has not noted any blood in urine or stool. Patient has been eating and drinking appropriately. PMH of CABG x 2 (2017), RCA dissection, carotid artery stenosis with stent, GERD , PE, and TIA. Review of systems: As per history of present illness and below otherwise all systems reviewed and negative. Past medical history: As per history of present illness and as reviewed below otherwise noncontributory. Surgical history: As per history of present illness and as reviewed below otherwise noncontributory. Social history: See social history for further information Family history: As per history of present illness and as reviewed below otherwise noncontributory. Physical exam: General: Well-developed and well-nourished 49-year-old male. Alert and oriented 3. Nontoxic appearing and in no acute distress. HEENT: Atraumatic, normocephalic, pupils equal and reactive bilaterally, negative for conjunctival pallor or scleral icterus, mucous membranes moist, trachea midline. No drooling or trismus noted. No meningeal signs. No hot potato voice noted. Lungs: Clear to auscultation, breath sounds equal bilaterally, minimal anterior midsternal chest wall pain with palpation. Heart: S1S2, regular rate and rhythm without overt murmur Abdomen: Soft, nondistended, nontender. Negative for masses. Normoactive bowel sounds. Negative for costovertebral tenderness. Skin: Midline scar is noted to sternum. Intact, warm, dry. No lesions or rashes noted. Extremities: Atraumatic, moves all extremities per self without difficulty or deficits, negative for cords or calf pain. Neurovascular unremarkable. Neuro: Awake, alert, oriented. Cranial nerves II through XII unremarkable. Cerebellum unremarkable. Motor and sensory unremarkable throughout. Exam nonfocal. Notes: Lab work is unremarkable, with the exception of hypokalemia. Chest x-ray shows no acute findings. EKG shows no acute findings. Patient states that he does still have some mild discomfort. He declines any morphine as he states this makes him violent. He states he has had Dilaudid in the past without any problems. Currently pain-free. We discussed admission which he is agreeable to. Dr Dutton was consulted on this patient. He is agreeable to keeping him for observation with telemetry. Vital signs remain stable. Diagnostics: CBC, CMP, Troponin, EKG, Chest X-ray Therapeutics: IV fluids, Zofran, Nitro Subling x 3, ASA, Dilaudid Impression: Chest pain rule out [place] Plan: Observation admission with telemetry Definitive disposition and diagnosis as appropriate pending reevaluation and review of above. Chest Pain Score (Numeric/FACES): 7 - Related Data Allergies Allergy/AdvReac Type Severity Reaction Status Date / Time codeine Allergy Hives Verified 09/07/19 13:55 Iodinated Contrast Media Allergy Hives Verified 09/07/19 13:55 morphine Allergy Other Verified 09/07/19 13:55 Home Meds: Home Meds Cholecalciferol (Vitamin D3) [Vitamin D3] 1 tab PO DAILY 09/03/19 [History] Clopidogrel [Plavix] 75 mg PO DAILY 09/03/19 [History] DULoxetine [Cymbalta] 30 mg PO DAILY 09/03/19 [History] Folic Acid 09/03/19 [History] Gabapentin [Neurontin] 1 tab PO QID 09/03/19 [History] Hydrocodone/Acetaminophen [[place] 10-325 Tablet] 1 each PO Q6H PRN 09/03/19 [ History] Lansoprazole 15 mg PO DAILY 09/03/19 [History] Losartan [Cozaar] 25 mg PO DAILY 09/03/19 [History] Omeprazole 20 mg PO DAILY 09/03/19 [History] amLODIPine [Norvasc] 5 mg PO DAILY 09/03/19 [History] atorvaSTATin [Lipitor] 80 mg PO BEDTIME 09/03/19 [History] busPIRone [Buspar] 20 mg PO BID 09/03/19 [History] traMADol HCl [Tramadol HCl] 50 mg PO Q6H PRN 09/03/19 [History] traZODone HCl [Trazodone HCl] 200 mg PO BEDTIME 09/03/19 [History] Past Medical History Cardiovascular History: Reports: Blood Clots/VTE/DVT, CAD, Heart Failure (EF 50- 55%), High Cholesterol, Hypertension, [place], Stents (coronary and R carotid) Respiratory History: Reports: Sleep Apnea (possible) Gastrointestinal History: Reports: GERD Neurological History: Reports: CVA, TIA Psychiatric History: Reports: Anxiety, Depression, Panic Attack Oncologic (Cancer) History: Reports: Lymphoma Dermatologic History: Reports: Psoriasis - Past Surgical History Cardiovascular Surgical History: Reports: Coronary Artery Bypass Musculoskeletal Surgical History: Reports: Shoulder Surgery Social & Family History - Family History Family Medical History: Noncontributory - Caffeine Use Caffeine Use: Reports: Soda - Living Situation & Occupation Occupation: Employed ED ROS GENERAL - Review of Systems Review Of Systems: ROS reveals no pertinent complaints other than HPI. ED EXAM, GENERAL - Physical Exam Exam: See Below (See dictation) Course - Vital Signs Last Recorded V/S: Last Vital Signs Temp 97 F 09/07/19 13:57 Pulse 76 09/07/19 15:05 Resp 16 09/07/19 15:05 BP 117/61 09/07/19 14:32 Pulse Ox 92 L 09/07/19 15:05 - Orders/Labs/Meds Orders: Active Orders 24 hr Category Date Time Status Admission Status [Patient Status] [ADT] Stat ADT 09/07/19 15:04 Active EKG Documentation Completion [RC] STAT Care 09/07/19 13:50 Active Potassium Chloride Riders [KCL 20 MEQ in Water 50 ML] Med 09/07/19 15:01 Active 20 meq Premix Bag 1 bag IV ONETIME Sodium Chloride 0.9% [Normal Saline] 1,000 ml Med 09/07/19 13:55 Active IV STAT Sodium Chloride 0.9% [Saline Flush] Med 09/07/19 13:50 Active 10 ml FLUSH ASDIRECTED PRN Sodium Chloride 0.9% [Saline Flush] Med 09/07/19 13:50 Active 2.5 ml FLUSH ASDIRECTED PRN Saline Lock Insert [OM.PC] Stat Oth 09/07/19 13:50 Ordered Medication Orders Sodium Chloride (Normal Saline) 1,000 mls @ 125 mls/hr IV STAT ONE Stop: 09/07/19 21:54 Last Admin: 09/07/19 14:10 Dose: 125 mls/hr Potassium Chloride 20 meq/ (Premix) 50 mls @ 25 mls/hr IV ONETIME ONE Stop: 09/07/19 17:00 Sodium Chloride (Saline Flush) 10 ml FLUSH ASDIRECTED PRN PRN Reason: Keep Vein Open Last Admin: 09/07/19 14:23 Dose: 10 ml Sodium Chloride (Saline Flush) 2.5 ml FLUSH ASDIRECTED PRN PRN Reason: Keep Vein Open Last Admin: 09/07/19 14:24 Dose: 2.5 ml Labs: Laboratory Tests 09/07/19 09/07/19 09/07/19 Range/Units 14:00 14:00 14:00 WBC 7.83 (4.0-11.0) K/uL RBC 5.48 (4.50-5.90) M/uL Hgb 16.3 (13.0-17.0) g/dL Hct 46.4 (38.0-50.0) % MCV 84.7 (80.0-98.0) fL MCH 29.7 (27.0-32.0) pg MCHC 35.1 (31.0-37.0) g/dL RDW Std Deviation 41.2 (28.0-62.0) fl RDW Coeff of Farzana 13 (11.0-15.0) % Plt Count 303 (150-400) K/uL MPV 9.50 (7.40-12.00) fL Neut % (Auto) 68.2 (48.0-80.0) % Lymph % (Auto) 23.9 (16.0-40.0) % [place] % (Auto) 5.6 (0.0-15.0) % Eos % (Auto) 1.5 (0.0-7.0) % Baso % (Auto) 0.8 (0.0-1.5) % Neut # (Auto) 5.3 (1.4-5.7) K/uL Lymph # (Auto) 1.9 (0.6-2.4) K/uL [place] # (Auto) 0.4 (0.0-0.8) K/uL Eos # (Auto) 0.1 (0.0-0.7) K/uL Baso # (Auto) 0.1 (0.0-0.1) K/uL Nucleated RBC % 0.0 /100WBC Nucleated RBCs # 0 K/uL Sodium 143 (136-148) mmol/L Potassium 2.9 L (3.5-5.1) mmol/L Chloride 103 (98-107) mmol/L Carbon Dioxide 32.1 H (21.0-32.0) mmol/L BUN 17 (7.0-18.0) mg/dL Creatinine 1.1 (0.8-1.3) mg/dL Est Cr Clr Drug Dosing 78.59 mL/min Estimated GFR (MDRD) > 60.0 ml/min Glucose 88 (74-106) mg/dL Calcium 8.8 (8.5-10.1) mg/dL Magnesium 1.7 L (1.8-2.4) mg/dL Total Bilirubin 0.4 (0.2-1.0) mg/dL AST 17 (15-37) IU/L ALT 36 (14-63) IU/L Alkaline Phosphatase 89 (46-116) U/L Troponin I < 0.050 (0.000-0.056) ng/mL Total Protein 7.9 (6.4-8.2) g/dL Albumin 3.8 (3.4-5.0) g/dL Globulin 4.1 H (2.6-4.0) g/dL Albumin/Globulin Ratio 0.9 (0.9-1.6) Meds: Medications Generic Name Dose Route Start Last Admin Trade Name Freq PRN Reason Stop Dose Admin Sodium Chloride 1,000 mls @ 125 mls/hr 09/07/19 13:55 09/07/19 14:10 Normal Saline IV 09/07/19 21:54 125 mls/hr STAT ONE Administration Potassium Chloride 20 meq/ 50 mls @ 25 mls/hr 09/07/19 15:01 Premix IV 09/07/19 17:00 ONETIME ONE Sodium Chloride 10 ml 09/07/19 13:50 09/07/19 14:23 Saline Flush FLUSH 10 ml ASDIRECTED PRN Administration Keep Vein Open Sodium Chloride 2.5 ml 09/07/19 13:50 09/07/19 14:24 Saline Flush FLUSH 2.5 ml ASDIRECTED PRN Administration Keep Vein Open Discontinued Medications Generic Name Dose Route Start Last Admin Trade Name Freq PRN Reason Stop Dose Admin Aspirin 324 mg 09/07/19 13:50 09/07/19 13:56 Aspirin PO 09/07/19 13:51 324 mg ONETIME ONE Administration Al Hydroxide/Mg Hydroxide 15 0 ml 09/07/19 15:03 ml/ Metoclopramide HCl 5 mg/ PO 09/07/19 15:04 Lidocaine HCl 5 ml ONETIME ONE Hydromorphone HCl 0.5 mg 09/07/19 15:01 Dilaudid IVPUSH 09/07/19 15:02 ONETIME ONE Nitroglycerin 0.4 mg 09/07/19 13:55 09/07/19 14:32 Nitrostat SL 0.4 mg Q5M PRN Administration Chest Pain Ondansetron HCl 4 mg 09/07/19 13:58 09/07/19 14:23 Zofran IVPUSH 09/07/19 13:59 Not Given ONETIME ONE Departure - Departure Time of Disposition: 15:14 Disposition: Refer to Observation Clinical Impression: Chest pain, rule out acute myocardial infarction Referrals: PCP,None [Primary Care Provider] - Forms: ED Department Discharge - My Orders Last 24 Hours: My Active Orders 09/07/19 13:50 EKG Documentation Completion [RC] STAT Sodium Chloride 0.9% [Saline Flush] 10 ml FLUSH ASDIRECTED PRN Sodium Chloride 0.9% [Saline Flush] 2.5 ml FLUSH ASDIRECTED PRN Saline Lock Insert [OM.PC] Stat 09/07/19 13:55 Sodium Chloride 0.9% [Normal Saline] 1,000 ml IV STAT 09/07/19 15:01 Potassium Chloride Riders [KCL 20 MEQ in Water 50 ML] 20 meq Premix Bag 1 bag IV ONETIME 09/07/19 15:04 Admission Status [Patient Status] [ADT] Stat - Assessment/Plan Last 24 Hours: My Active Orders 09/07/19 13:50 EKG Documentation Completion [RC] STAT Sodium Chloride 0.9% [Saline Flush] 10 ml FLUSH ASDIRECTED PRN Sodium Chloride 0.9% [Saline Flush] 2.5 ml FLUSH ASDIRECTED PRN Saline Lock Insert [OM.PC] Stat 09/07/19 13:55 Sodium Chloride 0.9% [Normal Saline] 1,000 ml IV STAT 09/07/19 15:01 Potassium Chloride Riders [KCL 20 MEQ in Water 50 ML] 20 meq Premix Bag 1 bag IV ONETIME 09/07/19 15:04 Admission Status [Patient Status] [ADT] Stat
[2019-09-07] MEDS: Nitroglycerin 0.4 MG Tab.SL SL PRN ×3 (14:22→14:32)
--- NOTE | 2019-09-07 14:33 | CR ---
EXAM DATE: 09/07/19 PATIENT'S AGE: 49 Chest: Portable view of the chest was obtained. Comparison: Prior chest x-ray of 09/03/19. Findings: Heart size and mediastinum are normal. Sternotomy wires are seen. Lungs show no acute parenchymal change. Bony structures are grossly intact. Previous left shoulder surgery is noted. Impression: 1. Prior surgery as noted above. 2. Nothing acute seen on portable chest x-ray. Diagnostic code #2 Report Signed by Proxy. NELL
[2019-09-07 14:53] LABS: BLOOD UREA NITROGEN,BUN 17 mg/dL (7.0-18.0); CARBON DIOXIDE,CO2 32.1 mmol/L (21.0-32.0); CHLORIDE,CL 103 mmol/L (98-107); GLUCOSE RANDOM 88 mg/dL (74-106); POTASSIUM,K 2.9 mmol/L (3.5-5.1); SODIUM,NA 143 mmol/L (136-148)
[2019-09-07] MEDS ORDERED: HYDROmorphone 2 MG/ML Syringe IVPUSH ONE (15:01)
[2019-09-07] MEDS ORDERED: Potassium Chloride Riders 20 MEQ in Premix Bag 1 BAG IV ONE (15:01)
[2019-09-07] MEDS ORDERED: Alum Hydrox/Mag Hydrox/Simeth 15 ML, Metoclopramide 5 MG, Lidocaine 2% 5 ML PO ONE ×3 (15:03)
[2019-09-07] MEDS ORDERED: Pantoprazole 40 MG in Sodium Chloride 0.9% 10 ML IV ONE (15:35)
[2019-09-07] MEDS ORDERED: Magnesium Sulfate/Water 2 GM in Premix Bag 1 BAG IV ONE (15:54)
[2019-09-07] MEDS ORDERED: Potassium Chloride 20 MEQ Tab.ER PO ONE (15:54)
--- NOTE | 2019-09-07 16:00 | PCM.HP.2 ---
H&P History of Present Illness - General Date of Service: 09/07/19 Admit Problem/Dx: Admission Diagnosis/Problem Admission Diagnosis/Problem Chest pain, rule out acute myocardial infarction Source of Information: Patient History Limitations: Reports: No Limitations - History of Present Illness Initial Comments - Free Text/Narative: This 49 year old male with PMH of CABG x 2 in 2016, RCA dissection 2016, carotid artery stenosis with stent, GERD, Depression and anxiety, PE x 2 in 2007 , Stroke 2016 and TIA in 2016 presented today with complaints of chest tightness. He was recently discharged on 09/04/2019 after being monitored for chest pain and ACS ruled out. Troponins negative and he was chest pain free on discharge. He reports the pain started today when he was lying down. It radiated slightly to his mid back but settled in mid chest. He reported mild nausea with this pain and heartburn. No diaphoresis. No recent URI symptoms. He denies abdominal pain, urinary concerns or neurological concerns. He denies recent use of NSAIDs, but did confirm he has been out of all his medications, including Plavix and anti-hypertensives. He has been taking Omeprazole daily for heartburn. He reports he continues to smoke at least a ppd and chews approximately tin a day. He denies alcohol use and no recreational drug use. Previous admission, d dimer up slightly, CT angio was obtained, which was negative for PE. Possible pulmonary edema was noted, Lasix x 1 given during stay. ECHO obtained which was normal, EF 55-60% noted. In the ED, CBC WNL. Hypokalemia noted, 2.9 Magnesium 1.7 Troponin negative. EKG SR with no ST elevation or signs of acute ischemia. CXR negative. Given ASA and Nitro in ED. He is currently chest pain free, having some heartburn still. Also given GI cocktail. Dilaudid given for pain, which ultimately helped with pain the best. He will be admitted for chest pain rule out HI. I did attempt to contact his Protective Services Social Worker, Dr Jorge, only able to leave a message, as Vipin is heading home in the next day. Previous admission I also attempted to contact Protective Services Social Worker, left message with [employer], to help schedule outpatient stress test. Vipin reports they have not contacted him regarding this. Chest Pain Score (Numeric/FACES): 7 - Related Data Allergies/Adverse Reactions: Allergies Allergy/AdvReac Type Severity Reaction Status Date / Time codeine Allergy Hives Verified 09/07/19 13:55 Iodinated Contrast Media Allergy Hives Verified 09/07/19 13:55 morphine Allergy Other Verified 09/07/19 13:55 Home Medications: Home Meds Cholecalciferol (Vitamin D3) [Vitamin D3] 1 tab PO DAILY 09/03/19 [History] Clopidogrel [Plavix] 75 mg PO DAILY 09/03/19 [History] DULoxetine [Cymbalta] 30 mg PO DAILY 09/03/19 [History] Folic Acid 09/03/19 [History] Gabapentin [Neurontin] 1 tab PO QID 09/03/19 [History] Hydrocodone/Acetaminophen [[place] 10-325 Tablet] 1 each PO Q6H PRN 09/03/19 [ History] Lansoprazole 15 mg PO DAILY 09/03/19 [History] Losartan [Cozaar] 25 mg PO DAILY 09/03/19 [History] Omeprazole 20 mg PO DAILY 09/03/19 [History] amLODIPine [Norvasc] 5 mg PO DAILY 09/03/19 [History] atorvaSTATin [Lipitor] 80 mg PO BEDTIME 09/03/19 [History] busPIRone [Buspar] 20 mg PO BID 09/03/19 [History] traMADol HCl [Tramadol HCl] 50 mg PO Q6H PRN 09/03/19 [History] traZODone HCl [Trazodone HCl] 200 mg PO BEDTIME 09/03/19 [History] Past Medical History Cardiovascular History: Reports: Blood Clots/VTE/DVT, CAD, Heart Failure (EF 50- 55%), High Cholesterol, Hypertension, HI, Stents (coronary and R carotid) Respiratory History: Reports: Sleep Apnea (possible) Gastrointestinal History: Reports: GERD Neurological History: Reports: CVA, TIA Psychiatric History: Reports: Anxiety, Depression, Panic Attack Oncologic (Cancer) History: Reports: Lymphoma Dermatologic History: Reports: Psoriasis - Past Surgical History Cardiovascular Surgical History: Reports: Coronary Artery Bypass Musculoskeletal Surgical History: Reports: Shoulder Surgery Social & Family History - Family History Family Medical History: Noncontributory - Tobacco Use Smoking Status *Q: Current Every Day Smoker Years of Tobacco use: 25 Packs/Tins Daily: 1 - Caffeine Use Caffeine Use: Reports: Soda - Recreational Drug Use Recreational Drug Use: No - Living Situation & Occupation Occupation: Employed H&P Review of Systems - Review of Systems: Review Of Systems: See Below General: Reports: No Symptoms. Denies: Fever, Chills, Malaise, Weakness HEENT: Reports: No Symptoms. Denies: Sinus Congestion, Sore Throat, Vertigo Pulmonary: Reports: No Symptoms. Denies: Shortness of Breath Cardiovascular: Reports: Chest Pain (no longer having pain. ) Gastrointestinal: Reports: Other (heartburn). Denies: Abdominal Pain, Black Stool, Bloody Stool Genitourinary: Reports: No Symptoms. Denies: Dysuria, Frequency, Burning Skin: Reports: No Symptoms Psychiatric: Reports: No Symptoms Neurological: Reports: No Symptoms Hematologic/Lymphatic: Reports: No Symptoms Immunologic: Reports: No Symptoms Exam - Exam Exam: See Below - Vital Signs Vital Signs: Last Vital Signs Temp 97 F 09/07/19 13:57 Pulse 79 09/07/19 15:35 Resp 16 09/07/19 15:35 BP 121/83 09/07/19 15:35 Pulse Ox 94 L 09/07/19 15:35 Weight: 93 kg - Exam General: Alert, Oriented, Cooperative HEENT: Conjunctiva Clear, Nares Patent, Posterior Pharynx Clear Neck: No: JVD Lungs: Clear to Auscultation, Normal Respiratory Effort Cardiovascular: Regular Rate, Regular Rhythm, Normal S1, Normal S2. No: Systolic Murmur GI/Abdominal Exam: Normal Bowel Sounds, Soft, Non-Tender Extremities: Normal Inspection, Normal Range of Motion, Non-Tender, No Pedal Edema Neuro Extensive - Mental Status: Alert, Oriented x3 Neuro Extensive - Motor, Sensory, Reflexes: CN II-XII Intact - Patient Data Lab Results Last 24 hrs: Laboratory Results - last 24 hr 09/07/19 09/07/19 09/07/19 Range/Units 14:00 14:00 14:00 WBC 7.83 (4.0-11.0) K/uL RBC 5.48 (4.50-5.90) M/uL Hgb 16.3 (13.0-17.0) g/dL Hct 46.4 (38.0-50.0) % MCV 84.7 (80.0-98.0) fL MCH 29.7 (27.0-32.0) pg MCHC 35.1 (31.0-37.0) g/dL RDW Std Deviation 41.2 (28.0-62.0) fl RDW Coeff of Farzana 13 (11.0-15.0) % Plt Count 303 (150-400) K/uL MPV 9.50 (7.40-12.00) fL Neut % (Auto) 68.2 (48.0-80.0) % Lymph % (Auto) 23.9 (16.0-40.0) % [place] % (Auto) 5.6 (0.0-15.0) % Eos % (Auto) 1.5 (0.0-7.0) % Baso % (Auto) 0.8 (0.0-1.5) % Neut # (Auto) 5.3 (1.4-5.7) K/uL Lymph # (Auto) 1.9 (0.6-2.4) K/uL [place] # (Auto) 0.4 (0.0-0.8) K/uL Eos # (Auto) 0.1 (0.0-0.7) K/uL Baso # (Auto) 0.1 (0.0-0.1) K/uL Nucleated RBC % 0.0 /100WBC Nucleated RBCs # 0 K/uL Sodium 143 (136-148) mmol/L Potassium 2.9 L (3.5-5.1) mmol/L Chloride 103 (98-107) mmol/L Carbon Dioxide 32.1 H (21.0-32.0) mmol/L BUN 17 (7.0-18.0) mg/dL Creatinine 1.1 (0.8-1.3) mg/dL Est Cr Clr Drug Dosing 78.59 mL/min Estimated GFR (MDRD) > 60.0 ml/min Glucose 88 (74-106) mg/dL Calcium 8.8 (8.5-10.1) mg/dL Magnesium 1.7 L (1.8-2.4) mg/dL Total Bilirubin 0.4 (0.2-1.0) mg/dL AST 17 (15-37) IU/L ALT 36 (14-63) IU/L Alkaline Phosphatase 89 (46-116) U/L Troponin I < 0.050 (0.000-0.056) ng/mL Total Protein 7.9 (6.4-8.2) g/dL Albumin 3.8 (3.4-5.0) g/dL Globulin 4.1 H (2.6-4.0) g/dL Albumin/Globulin Ratio 0.9 (0.9-1.6) Result Diagrams: 09/07/19 14:00 09/07/19 14:00 EKG INTERPRETATION EKG Date: 09/07/19 Rhythm: NSR P-Wave: Present QRS: Normal ST-T: Normal QT: Normal - Problem List (1) Chest pain, rule out acute myocardial infarction SNOMED Code(s): 63073146 ICD Code: R07.9 - CHEST PAIN, UNSPECIFIED Status: Acute Current Visit: Yes (2) Anxiety and depression SNOMED Code(s): 802815431 ICD Code: F41.9 - ANXIETY DISORDER, UNSPECIFIED; F32.9 - MAJOR DEPRESSIVE DISORDER, SINGLE EPISODE, UNSPECIFIED Status: Chronic Current Visit: No (3) CAD (coronary artery disease) SNOMED Code(s): 46955378 ICD Code: I25.10 - ATHSCL HEART DISEASE OF [place] CORONARY ARTERY W/O ANG PCTRS Status: Chronic Current Visit: No (4) CVA (cerebral vascular accident) SNOMED Code(s): 798167343 ICD Code: I63.9 - CEREBRAL INFARCTION, UNSPECIFIED Status: Chronic Current Visit: No (5) GERD (gastroesophageal reflux disease) SNOMED Code(s): 607982135 ICD Code: K21.9 - GASTRO-ESOPHAGEAL REFLUX DISEASE WITHOUT ESOPHAGITIS Status: Chronic Current Visit: No (6) History of right common carotid artery stent placement SNOMED Code(s): 249109666 ICD Code: Z98.890 - OTHER SPECIFIED POSTPROCEDURAL STATES; Z95.828 - PRESENCE OF OTHER VASCULAR IMPLANTS AND GRAFTS Status: Chronic Current Visit : No (7) Hx pulmonary embolism SNOMED Code(s): 411848298 ICD Code: Z86.711 - PERSONAL HISTORY OF PULMONARY EMBOLISM Status: Chronic Current Visit: No (8) S/P CABG x 2 SNOMED Code(s): 240260215, 769960266, 819382421 ICD Code: Z95.1 - PRESENCE OF AORTOCORONARY BYPASS GRAFT Status: Chronic Current Visit: No (9) Smoker SNOMED Code(s): 85172955 ICD Code: F17.200 - NICOTINE DEPENDENCE, UNSPECIFIED, UNCOMPLICATED Status : Chronic Current Visit: No Problem List Initiated/Reviewed/Updated: Yes Orders Last 24hrs: Active Orders 24 hr Category Date Time Status Admission Status [Patient Status] [ADT] Stat ADT 09/07/19 15:04 Active EKG Documentation Completion [RC] STAT Care 09/07/19 13:50 Active Telemetry Monitoring [Cardiac Monitoring] [RC] . Care 09/07/19 15:34 Active DIRECTED Magnesium Sulfate/Water [Magnesium Sulfate in Water Med 09/07/19 15:54 Active Premix] 2 gm Premix Bag 1 bag IV ONETIME Potassium Chloride 20 meq Med 09/07/19 15:45 Active Sodium Chloride 0.9% [Normal Saline] 250 ml IV ONETIME Sodium Chloride 0.9% [Normal Saline] 1,000 ml Med 09/07/19 13:55 Active IV STAT Sodium Chloride 0.9% [Saline Flush] Med 09/07/19 13:50 Active 10 ml FLUSH ASDIRECTED PRN Sodium Chloride 0.9% [Saline Flush] Med 09/07/19 13:50 Active 2.5 ml FLUSH ASDIRECTED PRN Saline Lock Insert [OM.PC] Stat Oth 09/07/19 13:50 Ordered Medication Orders Sodium Chloride (Normal Saline) 1,000 mls @ 125 mls/hr IV STAT ONE Stop: 09/07/19 21:54 Last Admin: 09/07/19 14:10 Dose: 125 mls/hr Potassium Chloride 20 meq/ (Sodium Chloride) 260 mls @ 130 mls/hr IV ONETIME ONE Stop: 09/07/19 17:44 Last Admin: 09/07/19 15:43 Dose: 130 mls/hr Magnesium Sulfate 2 gm/ Premix 50 mls @ 50 mls/hr IV ONETIME ONE Stop: 09/07/19 16:53 Sodium Chloride (Saline Flush) 10 ml FLUSH ASDIRECTED PRN PRN Reason: Keep Vein Open Last Admin: 09/07/19 14:23 Dose: 10 ml Sodium Chloride (Saline Flush) 2.5 ml FLUSH ASDIRECTED PRN PRN Reason: Keep Vein Open Last Admin: 09/07/19 14:24 Dose: 2.5 ml Assessment/Plan Comment:: This 49 year old with significant CAD admitted with chest pain and shortness of breath. 1. Chest pain: Rule out ACS with troponins. Monitor on telemetry. Restart Plavix as he is out. Will try arrange outpatient stress test with junior accounting clerk in [place] this week or next. 2. GERD: Given Protonix and GI cocktail in the ED. Continue Protonix. Taking Omeprazole at home, will change as this may not be working well and interacts with Plavix. 3. HTN/CAD : Continue Home medications, including Losartan, Norvasc, Plavix and ASA 4. Anxiety/Depression: Continue home medications VTE prophylaxis: Lovenox. Dispo: 1 day - Mortality Measure Prognosis:: Good
[2019-09-07] MEDS ORDERED: Acetaminophen 325 MG Tab PO PRN (16:07)
[2019-09-07] MEDS ORDERED: Ondansetron 4 MG/2 ML SDV IVPUSH PRN (16:07)
[2019-09-07] MEDS ORDERED: Enoxaparin 40 MG/0.4 ML Syringe SUBCUT SCH (16:15)
[2019-09-07] MEDS: Clopidogrel 75 MG Tab PO SCH (17:41)
[2019-09-07] MEDS ORDERED: Pantoprazole 40 MG Vial ONE (18:29)
[2019-09-08] MEDS ORDERED: traZODone 50 MG Tab PO ONE
[2019-09-08 02:31] LABS: BLOOD UREA NITROGEN,BUN 14 mg/dL (7.0-18.0); CARBON DIOXIDE,CO2 30.1 mmol/L (21.0-32.0); CHLORIDE,CL 106 mmol/L (98-107); GLUCOSE RANDOM 91 mg/dL (74-106); POTASSIUM,K 3.6 mmol/L (3.5-5.1); SODIUM,NA 141 mmol/L (136-148)
--- NOTE | 2019-09-08 08:46 | PCM.DCSUM1 ---
Discharge Summary - Hospital Course Brief History: This 49 year old male with PMH of CABG x 2 in 2017, RCA dissection 2016, carotid artery stenosis with stent, GERD, Depression and anxiety, PE x 2 in 2007, Stroke 2016 and TIA in 2017 presented today with complaints of chest tightness. He was recently discharged on 09/04/2019 after being monitored for chest pain and ACS ruled out. Troponins negative and he was chest pain free on discharge. He reports the pain started today when he was lying down. It radiated slightly to his mid back but settled in mid chest. He reported mild nausea with this pain and heartburn. No diaphoresis. No recent URI symptoms. He denies abdominal pain, urinary concerns or neurological concerns. He denies recent use of NSAIDs, but did confirm he has been out of all his medications, including Plavix and anti-hypertensives. He has been taking Omeprazole daily for heartburn. He reports he continues to smoke at least a ppd and chews approximately tin a day. He denies alcohol use and no recreational drug use. Previous admission, d dimer up slightly, CT angio was obtained, which was negative for PE. Possible pulmonary edema was noted, Lasix x 1 given during stay. ECHO obtained which was normal, EF 55-60% noted. In the ED, CBC WNL. Hypokalemia noted, 2.9 Magnesium 1.7 Troponin negative. EKG SR with no ST elevation or signs of acute ischemia. CXR negative. Given ASA and Nitro in ED. He is currently chest pain free, having some heartburn still. Also given GI cocktail. Dilaudid given for pain, which ultimately helped with pain the best. He will be admitted for chest pain rule out [place]. I did contact his [employer], Dr Jorge, he spoke with Dr Waggoner. Agreed with plan and will see patient when he returns to [place]. Diagnosis: Stroke: No - Discharge Data Discharge Date: 09/08/19 Discharge Disposition: Home, Self-Care 01 Condition: Stable - Referral to Home Health Primary Care Physician: PCP None - Discharge Diagnosis/Problem(s) (1) Chest pain, rule out acute myocardial infarction SNOMED Code(s): 37780094 ICD Code: R07.9 - CHEST PAIN, UNSPECIFIED Status: Acute Current Visit: Yes (2) Anxiety and depression SNOMED Code(s): 386172624 ICD Code: F41.9 - ANXIETY DISORDER, UNSPECIFIED; F32.9 - MAJOR DEPRESSIVE DISORDER, SINGLE EPISODE, UNSPECIFIED Status: Chronic Current Visit: No (3) CAD (coronary artery disease) SNOMED Code(s): 93943028 ICD Code: I25.10 - ATHSCL HEART DISEASE OF [place] CORONARY ARTERY W/O ANG PCTRS Status: Chronic Current Visit: No (4) CVA (cerebral vascular accident) SNOMED Code(s): 870231348 ICD Code: I63.9 - CEREBRAL INFARCTION, UNSPECIFIED Status: Chronic Current Visit: No (5) GERD (gastroesophageal reflux disease) SNOMED Code(s): 010465647 ICD Code: K21.9 - GASTRO-ESOPHAGEAL REFLUX DISEASE WITHOUT ESOPHAGITIS Status: Chronic Current Visit: No (6) History of right common carotid artery stent placement SNOMED Code(s): 908537286 ICD Code: Z98.890 - OTHER SPECIFIED POSTPROCEDURAL STATES; Z95.828 - PRESENCE OF OTHER VASCULAR IMPLANTS AND GRAFTS Status: Chronic Current Visit : No (7) Hx pulmonary embolism SNOMED Code(s): 591384370 ICD Code: Z86.711 - PERSONAL HISTORY OF PULMONARY EMBOLISM Status: Chronic Current Visit: No (8) S/P CABG x 2 SNOMED Code(s): 057296398, 587013134, 410785262 ICD Code: Z95.1 - PRESENCE OF AORTOCORONARY BYPASS GRAFT Status: Chronic Current Visit: No (9) Smoker SNOMED Code(s): 48101434 ICD Code: F17.200 - NICOTINE DEPENDENCE, UNSPECIFIED, UNCOMPLICATED Status : Chronic Current Visit: No - Patient Instructions Diet: Heart Healthy Diet Activity: No Strenuous Activities Showering/Bathing: May Shower Notify Provider of: Fever, Increased Pain, Swelling and Redness, Drainage, Nausea and/or Vomiting - Discharge Plan *PRESCRIPTION DRUG MONITORING PROGRAM REVIEWED*: Not Applicable *COPY OF PRESCRIPTION DRUG MONITORING REPORT IN PATIENT TAMMY: Not Applicable Prescriptions/Med Rec: amLODIPine [Norvasc] 5 mg PO DAILY #5 tablet atorvaSTATin [Lipitor] 80 mg PO BEDTIME #10 tablet Clopidogrel [Plavix] 75 mg PO DAILY #5 tablet Losartan [Cozaar] 25 mg PO DAILY #5 tablet Pantoprazole Sodium [Protonix] 20 mg PO DAILY #14 tablet.dr Aguilar Medications: Home Meds Cholecalciferol (Vitamin D3) [Vitamin D3] 1 tab PO DAILY 09/03/19 [History] Clopidogrel [Plavix] 75 mg PO DAILY 09/03/19 [History] DULoxetine [Cymbalta] 120 mg PO DAILY 09/03/19 [History] Folic Acid 1 tab PO BEDTIME 09/03/19 [History] Gabapentin [Neurontin] 1,600 mg PO BID 09/03/19 [History] amLODIPine [Norvasc] 5 mg PO DAILY 09/03/19 [History] busPIRone [Buspar] 20 mg PO BID 09/03/19 [History] traZODone HCl [Trazodone HCl] 100 - 200 mg PO BEDTIME 09/03/19 [History] Clopidogrel [Plavix] 75 mg PO DAILY #5 tablet 09/08/19 [Rx] Lansoprazole 15 mg PO DAILY 09/08/19 [History] Losartan [Cozaar] 25 mg PO DAILY #5 tablet 09/08/19 [Rx] Pantoprazole Sodium [Protonix] 20 mg PO DAILY #14 tablet. 09/08/19 [Rx] amLODIPine [Norvasc] 5 mg PO DAILY #5 tablet 09/08/19 [Rx] atorvaSTATin [Lipitor] 80 mg PO BEDTIME #10 tablet 09/08/19 [Rx] Oxygen Therapy Mode: Room Air Patient Handouts: Losartan tablets, Clopidogrel tablets, Nonspecific Chest Pain , [id number], Atorvastatin tablets, Amlodipine tablets, Pantoprazole tablets - Discharge Summary/Plan Comment DC Time >30 min.: No Discharge Summary/Plan Comment: Admitting Diagnoses: Chest pain Dyspnea Discharge Diagnoses; Chest pain-resolved Dysponea- resolved Other PMH: CAD HTN Hx CABG x 2 Hx CVA Carotid stenosis with stenting Hx RCA dissection Depression Anxiety Hx PE Vipin was admitted for chest pain, which resolved in the ED. He was monitored on telemetry with no ST segment or T wave inversions overnight. He is feeling improved today. He was switched from Prilosec to Protonix for GERD. He was counseled on using Protonix instead of Prilosec with Plavix. He also admitted he was out of medications for the past few days. He was provided with his cardiac medications during his stay. He was educated on taking aspirin as well. Troponins negative during stay. He is returning home today or tomorrow to [place], he has follow up with [employer]. He was counseled on no strenuous activity and to have outpatient stress test with [employer]. He is to return to ED or clinic if concerns should arise. I did send 5 day supple of cardiac meds to pharmacy to get him home where he has his medications. - Patient Data Vitals - Most Recent: Last Vital Signs Temp 97.5 F 09/08/19 04:47 Pulse 64 09/08/19 04:47 Resp 16 09/08/19 04:47 BP 135/63 09/08/19 04:47 Pulse Ox 94 L 09/08/19 04:47 Weight - Most Recent: 94.393 kg I&O - Last 24 hours: Intake & Output 09/07/19 09/08/19 09/08/19 22:59 06:59 14:59 Intake Total 990 Output Total 1700 Balance -710 Lab Results - Last 24 hrs: Laboratory Results - last 24 hr 09/07/19 09/07/19 09/07/19 Range/Units 14:00 14:00 14:00 WBC 7.83 (4.0-11.0) K/uL RBC 5.48 (4.50-5.90) M/uL Hgb 16.3 (13.0-17.0) g/dL Hct 46.4 (38.0-50.0) % MCV 84.7 (80.0-98.0) fL MCH 29.7 (27.0-32.0) pg MCHC 35.1 (31.0-37.0) g/dL RDW Std Deviation 41.2 (28.0-62.0) fl RDW Coeff of [place] 13 (11.0-15.0) % Plt Count 303 (150-400) K/uL MPV 9.50 (7.40-12.00) fL Neut % (Auto) 68.2 (48.0-80.0) % Lymph % (Auto) 23.9 (16.0-40.0) % [place] % (Auto) 5.6 (0.0-15.0) % Eos % (Auto) 1.5 (0.0-7.0) % Baso % (Auto) 0.8 (0.0-1.5) % Neut # (Auto) 5.3 (1.4-5.7) K/uL Lymph # (Auto) 1.9 (0.6-2.4) K/uL [place] # (Auto) 0.4 (0.0-0.8) K/uL Eos # (Auto) 0.1 (0.0-0.7) K/uL Baso # (Auto) 0.1 (0.0-0.1) K/uL Nucleated RBC % 0.0 /100WBC Nucleated RBCs # 0 K/uL Sodium 143 (136-148) mmol/L Potassium 2.9 L (3.5-5.1) mmol/L Chloride 103 (98-107) mmol/L Carbon Dioxide 32.1 H (21.0-32.0) mmol/L BUN 17 (7.0-18.0) mg/dL Creatinine 1.1 (0.8-1.3) mg/dL Est Cr Clr Drug Dosing 78.59 mL/min Estimated GFR (MDRD) > 60.0 ml/min Glucose 88 (74-106) mg/dL Calcium 8.8 (8.5-10.1) mg/dL Magnesium 1.7 L (1.8-2.4) mg/dL Total Bilirubin 0.4 (0.2-1.0) mg/dL AST 17 (15-37) IU/L ALT 36 (14-63) IU/L Alkaline Phosphatase 89 (46-116) U/L Troponin I < 0.050 (0.000-0.056) ng/mL Total Protein 7.9 (6.4-8.2) g/dL Albumin 3.8 (3.4-5.0) g/dL Globulin 4.1 H (2.6-4.0) g/dL Albumin/Globulin Ratio 0.9 (0.9-1.6) 09/07/19 09/08/19 09/08/19 Range/Units 20:03 02:04 02:04 WBC (4.0-11.0) K/uL RBC (4.50-5.90) M/uL Hgb (13.0-17.0) g/dL Hct (38.0-50.0) % MCV (80.0-98.0) fL MCH (27.0-32.0) pg MCHC (31.0-37.0) g/dL RDW Std Deviation (28.0-62.0) fl RDW Coeff of [place] (11.0-15.0) % Plt Count (150-400) K/uL MPV (7.40-12.00) fL Neut % (Auto) (48.0-80.0) % Lymph % (Auto) (16.0-40.0) % [place] % (Auto) (0.0-15.0) % Eos % (Auto) (0.0-7.0) % Baso % (Auto) (0.0-1.5) % Neut # (Auto) (1.4-5.7) K/uL Lymph # (Auto) (0.6-2.4) K/uL [place] # (Auto) (0.0-0.8) K/uL Eos # (Auto) (0.0-0.7) K/uL Baso # (Auto) (0.0-0.1) K/uL Nucleated RBC % /100WBC Nucleated RBCs # K/uL Sodium 141 (136-148) mmol/L Potassium 3.6 (3.5-5.1) mmol/L Chloride 106 (98-107) mmol/L Carbon Dioxide 30.1 (21.0-32.0) mmol/L BUN 14 (7.0-18.0) mg/dL Creatinine 1.0 (0.8-1.3) mg/dL Est Cr Clr Drug Dosing 86.45 mL/min Estimated GFR (MDRD) > 60.0 ml/min Glucose 91 (74-106) mg/dL Calcium 7.8 L (8.5-10.1) mg/dL Magnesium 2.2 (1.8-2.4) mg/dL Total Bilirubin (0.2-1.0) mg/dL AST (15-37) IU/L ALT (14-63) IU/L Alkaline Phosphatase (46-116) U/L Troponin I < 0.050 < 0.050 (0.000-0.056) ng/mL Total Protein (6.4-8.2) g/dL Albumin (3.4-5.0) g/dL Globulin (2.6-4.0) g/dL Albumin/Globulin Ratio (0.9-1.6) Med Orders - Current: Current Medications Acetaminophen (Tylenol) 650 mg PO Q4H PRN PRN Reason: Pain (mild 1-3) Amlodipine Besylate (Norvasc) 5 mg PO DAILY [facility] Buspirone HCl (Buspar) 20 mg PO BID [facility] Clopidogrel Bisulfate (Plavix) 75 mg PO DAILY [facility] Last Admin: 09/07/19 17:41 Dose: 75 mg Duloxetine HCl (Cymbalta) 120 mg PO DAILY [facility] Enoxaparin Sodium (Lovenox) 40 mg SUBCUT Q24H [facility] Last Admin: 09/07/19 17:42 Dose: 40 mg Gabapentin (Neurontin) 1,200 mg PO BID [facility] Pantoprazole Sodium 40 mg/ (Sodium Chloride) 10 mls @ 200 mls/hr IV Q24H [facility] Losartan Potassium (Cozaar) 25 mg PO DAILY [facility] Ondansetron HCl (Zofran) 4 mg IVPUSH Q4H PRN PRN Reason: Nausea Sodium Chloride (Saline Flush) 10 ml FLUSH ASDIRECTED PRN PRN Reason: Keep Vein Open Last Admin: 09/07/19 14:23 Dose: 10 ml Sodium Chloride (Saline Flush) 2.5 ml FLUSH ASDIRECTED PRN PRN Reason: Keep Vein Open Last Admin: 09/07/19 14:24 Dose: 2.5 ml Discontinued Medications Aspirin (Aspirin) 324 mg PO ONETIME ONE Stop: 09/07/19 13:51 Last Admin: 09/07/19 13:56 Dose: 324 mg Al Hydroxide/Mg Hydroxide 15 ml/ Metoclopramide HCl 5 mg/Lidocaine HCl 5 ml 0 ml PO ONETIME ONE Stop: 09/07/19 15:04 Last Admin: 09/07/19 15:14 Dose: 15 each Hydromorphone HCl (Dilaudid) 0.5 mg IVPUSH ONETIME ONE Stop: 09/07/19 15:02 Last Admin: 09/07/19 15:13 Dose: 0.5 mg Sodium Chloride (Normal Saline) 1,000 mls @ 125 mls/hr IV STAT ONE Stop: 09/07/19 21:54 Last Admin: 09/07/19 14:10 Dose: 125 mls/hr Potassium Chloride 20 meq/ (Sodium Chloride) 260 mls @ 130 mls/hr IV ONETIME ONE Stop: 09/07/19 17:44 Last Admin: 09/07/19 15:43 Dose: 130 mls/hr Pantoprazole Sodium 40 mg/ (Sodium Chloride) 10 mls @ 300 mls/hr IV NOW ONE Stop: 09/07/19 15:36 Last Admin: 09/07/19 18:41 Dose: 300 mls/hr Magnesium Sulfate 2 gm/ Premix 50 mls @ 50 mls/hr IV ONETIME ONE Stop: 09/07/19 16:53 Last Admin: 09/07/19 17:41 Dose: 50 mls/hr Nitroglycerin (Nitrostat) 0.4 mg SL Q5M PRN PRN Reason: Chest Pain Last Admin: 09/07/19 14:32 Dose: 0.4 mg Ondansetron HCl (Zofran) 4 mg IVPUSH ONETIME ONE Stop: 09/07/19 13:59 Last Admin: 09/07/19 14:23 Dose: Not Given Pantoprazole Sodium (Protonix Iv) Confirm Administered Dose 40 mg .ROUTE .STK -MED ONE Stop: 09/07/19 18:30 Last Admin: 09/07/19 18:38 Dose: Not Given Potassium Chloride (Klor-Con M20) 40 meq PO ONETIME ONE Stop: 09/07/19 15:55 Last Admin: 09/07/19 17:41 Dose: 40 meq Trazodone HCl (Trazodone) 100 mg PO ONETIME ONE Stop: 09/08/19 00:01 Last Admin: 09/08/19 00:12 Dose: 50 mg
[2019-09-08] MEDS ORDERED: DULoxetine 60 MG Cap PO SCH (09:00)
[2019-09-08] MEDS ORDERED: Pantoprazole 40 MG Vial IV SCH (09:00)
[2019-09-08] MEDS ORDERED: busPIRone 5 MG Tab PO SCH (09:00)
[2019-09-08] MEDS ORDERED: Pantoprazole 40 MG in Sodium Chloride 0.9% 10 ML IV SCH (09:00)
[2019-09-08] MEDS ORDERED: amLODIPine 5 MG Tab PO SCH (09:00)
[2019-09-08] MEDS ORDERED: Gabapentin 800 MG Tab PO SCH ×3 (09:00→09:34)
[2019-09-08] MEDS ORDERED: Losartan 50 MG Tab PO SCH (09:00)
[2019-09-08] MEDS: Clopidogrel 75 MG Tab PO SCH (09:42)
[2019-09-08] MEDS ORDERED: Furosemide 20 MG Tab PO ONE (09:48)
== END 2019-09-08 14:41 | disposition home or self-care (01) ==
LOC: MW.ED 13:43 → MW.MS 15:36
PROVIDERS: ADMIT Internal Medicine; ATTEND Internal Medicine
DX: R07.89 Other chest pain (principal); R06.02 Shortness of breath; I10 Essential (primary) hypertension; I25.10 Atherosclerotic heart disease of native coronary artery without angina pectoris; K21.9 Gastro-esophageal reflux disease without esophagitis; F41.9 Anxiety disorder, unspecified; F32.9 Major depressive disorder, single episode, unspecified; F17.210 Nicotine dependence, cigarettes, uncomplicated; Z88.5 Allergy status to narcotic agent; Z91.041 Radiographic dye allergy status; Z95.1 Presence of aortocoronary bypass graft; Z86.711 Personal history of pulmonary embolism; Z79.02 Long term (current) use of antithrombotics/antiplatelets; Z79.899 Other long term (current) drug therapy
CPT/HCPCS: 36415; 71045; 80048; 80053; 83735; 84484; 85025; 93005; 96361; 96365; 96375; 99285; A9270; C9113; J1170; J1650; J3475; J3480; J7040; J7050; 96367; 96372; 96376; G0378